=== PATIENT | male | born 1980 | race Caucasian/White ===

== ENCOUNTER 2020-03-27 10:44 | Emergency (ER) | payer OTHER, SELFPAY ==
[2020-03-27 10:53] VITALS: BP 130/70; PULSE 70; RESP 22; TEMP 36.6; O2SAT 99; BMI 86.3
--- NOTE | 2020-03-27 11:14 | ED.SOB ---
HPI - SOB/Dyspnea General Chief Complaint: Dyspnea <Mario Dorado NP - Last Filed: 03/27/20 16:19> Stated Complaint: hypertension <Mario Dorado NP - Last Filed: 03/27/20 16:19> Time Seen by Provider: 03/27/20 11:14 <Mario Dorado NP - Last Filed: 03/27/20 16:19> Source: patient <Mario Dorado NP - Last Filed: 03/27/20 16:19> Mode of arrival: ambulatory <Mario Dorado NP - Last Filed: 03/27/20 16:19> Limitations: no limitations <Mario Dorado NP - Last Filed: 03/27/20 16:19> History of Present Illness HPI Narrative: 39-year-old male with past medical history as noted below including history of pulmonary hypertension, asthma, obesity on 2 L oxygen at all times, chronic back pain who presents today with complaint of shortness of breath. States has had some shortness of breath unsure if it is related to his back or not he has history of chronic back pain and reports that sometimes this will cause him to have shortness of breath. Denies any recent cough congestion. No chest pain. No fever. <Mario Dorado NP - Last Filed: 03/27/20 16:19> MD elicited complaint: shortness of breath <Mario Dorado NP - Last Filed: 03/27/20 16:19> Related Data Home Medications: Previous Rx's Medication Instructions Recorded atorvastatin 40 mg PO DAILY #0 tab 03/27/20 lisinopril 20 mg PO DAILY #0 tab 03/27/20 metformin 1,000 mg PO DAILY #0 tab 03/27/20 omeprazole 40 mg PO DAILY #0 cap 03/27/20 verapamil 120 mg PO DAILY #0 tab 03/27/20 <PANKAJ Alan Last Filed: 03/27/20 16:19> Allergies/Adverse Reactions: Allergies Allergy/AdvReac Type Severity Reaction Status Date / Time No Known Allergies Allergy Verified 03/27/20 11:16 <PANKAJ Alan Last Filed: 03/27/20 16:19> Review of Systems Review of Systems: Constitutional: No Weight loss, No Fever, No Chills, No Night Sweats, No Fatigue, No Malaise ENT/Mouth: No Hearing loss, No Ear Pain, No Nasal Congestion, No Sinus Pain, No Hoarseness, No sore throat, No Rhinorrhea, No Swallowing Difficulty Eyes: No Eye Pain, No Swelling, No Redness, No Foreign Body, No Discharge, No Vision Changes Cardiovascular: No Chest Pain, No SOB, No Dyspnea on Exertion, No Orthopnea, No Edema, No Palpitations Respiratory: No Cough, No Sputum, No Wheezing, No Smoke Exposure, No Dyspnea Gastrointestinal: No Nausea, No Vomiting, No Diarrhea, No Constipation, No abdominal Pain, No Hematochezia, No Melena Genitourinary: no irregular bleeding, No Dysuria, No Urinary Frequency, No Hematuria, No Urinary Incontinence, No Urgency, No Flank Pain, No Urinary Flow Changes, No Hesitancy Musculoskeletal: No joint pain, No Myalgias, No Joint Swelling, + left side back pain Skin: No Skin Lesions, No rash Neuro: No Weakness, No Numbness, No Paresthesias, No Loss of Consciousness, No Dizziness, No Headache Psych: No Anxiety/Panic, No Depression, No SI/HI/AH/VH, No Social Issues, Heme/Lymph: No Bruising, No Bleeding,No Lymphadenopathy Endocrine: No Polyuria, No Polydipsia, No Temperature Intolerance <Mario Dorado NP - Last Filed: 03/27/20 16:19> Yes all other systems are reviewed and are negative <Mario Dorado NP - Last Filed: 03/27/20 16:19> PMFSH Past Medical History Attestation statement: The following information was validated with the patient. <Mario Dorado NP - Last Filed: 03/27/20 16:19> Medical History: Medical History (Updated 03/27/20 @ 16:01 by Mario Dorado NP) Asthma Chronic back pain Diabetes HTN (hypertension) Obesity Oxygen dependent Proteinuria Pulmonary hypertension Varicose veins of both lower extremities with pain <Mario Dorado NP - Last Filed: 03/27/20 16:19> Surgical History: Surgical History (Updated 03/27/20 @ 11:16 by Mario Dorado NP) H/O bariatric surgery History of abdominal surgery <Mario Dorado NP - Last Filed: 03/27/20 16:19> Social History Social History: Social History Alcohol intake: never Smoking Status: Never smoker Smoked in Last 30 Days: No Use of substances other than those prescribed or required for medical reasons: No Advance Directives: No Advance Directives Information Provided: No <Mario Dorado NP - Last Filed: 03/27/20 16:19> Physical Exam Vital Signs and I&O and Narrative: Vital Signs and I&O: Vital Signs Temp 98.1 F 03/27/20 15:34 Pulse 70 03/27/20 15:34 Resp 18 03/27/20 15:34 BP 108/67 03/27/20 15:34 Pulse Ox 98 03/27/20 15:34 Intake & Output 03/26/20 03/27/20 03/27/20 18:59 06:59 18:59 Weight 250 kg Body Mass Index 86.3 <Mario Dorado NP - Last Filed: 03/27/20 16:19> Vital Signs and I&O: Vital Signs Temp 98.1 F 03/27/20 15:34 Pulse 70 03/27/20 15:34 Resp 18 03/27/20 15:34 BP 108/67 03/27/20 15:34 Pulse Ox 98 03/27/20 15:34 Intake & Output 03/26/20 03/27/20 03/27/20 18:59 06:59 18:59 Weight 250 kg Body Mass Index 86.3 <Pratik Ferguson DO - Last Filed: 03/27/20 17:02> Const: General: cooperative and healthy appearing; No acute distress or intoxicated appearing <Mario Dorado NP - Last Filed: 03/27/20 16:19> Nutritional Appearance: average body habitus <Mario Dorado NP - Last Filed: 03/27/20 16:19> Orientation/consciousness: patient oriented x3 <Mario Dorado NP - Last Filed: 03/27/20 16:19> HENMT: Head: Yes normal to inspection <Mario Dorado NP - Last Filed: 03/27/20 16:19> Ears: hearing grossly normal bilaterally <Mario Dorado NP - Last Filed: 03/27/20 16:19> Eyes: General: appearance normal, both eyes and all related structures <Mario Dorado NP - Last Filed: 03/27/20 16:19> Visual Chisholm: normal visual chisholm by confrontation <[facility]strada - Last Filed: 03/27/20 16:19> Neck: Neck: Yes normal visual inspection, No positive Brudzinski's sign, No positive Kernig's sign and No tender <[facility] Estrada - Last Filed: 03/27/20 16:19> Thyroid: Thyroid normal <[facility] Estrada - Last Filed: 03/27/20 16:19> Chest: Chest palpation & inspection: normal inspection of the chest <[facility] Estrada - Last Filed: 03/27/20 16:19> Resp: Effort & Inspection: normal respiratory effort <[facility]strada - Last Filed: 03/27/20 16:19> Cardio: Jugular venous distension: no JVD <[facility]strada - Last Filed: 03/27/20 16:19> GI: Inspection: Yes normal to inspection <[facility]strada - Last Filed: 03/27/20 16:19> Percussion: Yes normal to percussion <[facility]strada - Last Filed: 03/27/20 16:19> Auscultation: normal bowel sounds <[facility]strada - Last Filed: 03/27/20 16:19> : General: Yes no CVA tenderness <[facility]strada - Last Filed: 03/27/20 16:19> Back/Spine/Pelvis: Back: no CVA tenderness <[facility] Estrada - Last Filed: 03/27/20 16:19> Skin: General skin exam: no rashes or lesions noted <[facility] Estrada - Last Filed: 03/27/20 16:19> Neuro: General: patient oriented x3 <[facility]strada - Last Filed: 03/27/20 16:19> Extrem: General: Yes normal to inspection <[facility] Estrada [employer] TECHNICIAN - Last Filed: 03/27/20 16:19> Course Course Hospital Course: reveals to me that he moved here from [facility] and has been trying to get into primary care doctor [facility] he has not been able to secure appointment. Requesting graduate assistant with this additionally he is O2 dependent and states he has a home unit however his portable supply is running low and requesting assistance with this as well. <Mario Dorado NP - Last Filed: 03/27/20 16:19> Reevaluation(s) Reevaluation #1: Labs overall stable. D-dimer negative. Chest x-ray negative. Troponin without delta. AP/ exam consistent musculoskeletal pain. Case discussed with case management- given that it is Saturday unable to make any refers to primary care doctor but will attempt to set him up tomorrow. In addition to this case was discussed with respiratory therapy- the therapist evaluated patient at bedside spoke to the in home sales representative from [facility] oxygen supplier their #[phone]. They are not on site to assist today however if he can contact them they can help the patient set that up from outpatient basis. He is requesting refill for his medication as he is in between doctor and no prescriber. He does use the [facility] and [facility] the nurse tried to call however unable to reach them. He does know his medications and refills were provided. <Mario Dorado NP - Last Filed: 03/27/20 16:19> Consultations Consultation #1: Case management; will assist tomorrow with primary care doctor <Mario Dorado NP - Last Filed: 03/27/20 16:19> Consultation #2: respiratory therapy; spoke to [facility] at [phone] - -- -- we can contact him tomorrow they will assist the patient's setting that up. He has home oxygen he just needs a supply the portable which he has short supply left. <Mario Dorado NP - Last Filed: 03/27/20 16:19> MDM - SOB/Dyspnea Differential Diagnosis Differential diagnosis: Likely acute exacerbation of chronic obstructive airways disease and pulmonary embolism; Unlikely congestive heart failure, pneumonia, pleural effusion, sleep apnea and anemia <PANKAJ Alan Last Filed: 03/27/20 16:19> Medical Records Attestation: I reviewed the patient's medical records. <Mario Dorado NP - Last Filed: 03/27/20 16:19> Lab Data Attestation: I reviewed the patient's lab results. <Mario Dorado NP - Last Filed: 03/27/20 16:19> Result diagrams: : 03/27/20 11:59 03/27/20 11:59 <Mario Dorado [employer] TECHNICIAN - Last Filed: 03/27/20 16:19> Labs: Lab Results 03/27/20 03/27/20 03/27/20 Range/Units 11:59 11:59 11:59 WBC 8.5 (4.8-10.8) X10*3/uL RBC 4.57 L (4.60-5.80) X10*6/uL Hgb 13.9 L (14.0-18.0) g/dl Hct 42.4 (42-52) % MCV 92.8 (80-98) fL MCH 30.4 (27.0-33.0) pg MCHC 32.8 (31.0-36.0) g/dl RDW 12.6 (11.0-16.0) % Plt Count 227 (160-400) X10*3/uL MPV 11.9 (9.4-12.4) fL Immature Gran % (Auto) 0.2 (0.0-0.4) % Neut % (Auto) 64.9 (45-73) % Lymph % (Auto) 22.9 (20-40) % [place] % (Auto) 8.8 (2-11) % Eos % (Auto) 2.5 (0-4) % Baso % (Auto) 0.7 (0-2) % Neut # (Auto) 5.5 (2.0-8.3) X10*3/uL Lymph # (Auto) 1.9 (1.2-4.9) X10*3/uL [place] # (Auto) 0.8 (0.1-1.2) X10*3/uL Eos # (Auto) 0.2 (0.0-0.4) X10*3/uL Baso # (Auto) 0.1 (0.0-0.2) X10*3/uL Abs Immat Gran (auto) 0.02 (0.00-0.03) X10*3/uL Absolute Nucleated RBC 0.000 (0.0-0.012) X10*3/uL Nucleated RBC % (auto) 0.0 (0.0-0.2) /100WBC D-Dimer NG/ML Sodium 142 (135-145) mmol/L Potassium 4.4 (3.3-5.1) mmol/l Chloride 104 (96-108) mmol/L Carbon Dioxide 31 H (22-29) mmol/L Anion Gap 11 L (12-20) BUN 13 (9-16) mg/dL Creatinine 0.99 (0.5-1.4) mg/dL Estim Creat Clear Calc 201.8 Estimated GFR > 60 Random Glucose 94 (60-115) mg/dL Calcium 9.2 (8.4-10.2) mg/dL Magnesium (1.6-2.6) mg/dL Troponin I High Sens 5.3 (<3.5-35.0) ng/L B-Natriuretic Peptide 20 (<100) pg/mL 03/27/20 03/27/20 03/27/20 Range/Units 11:59 11:59 14:09 WBC (4.8-10.8) X10*3/uL RBC (4.60-5.80) X10*6/uL Hgb (14.0-18.0) g/dl Hct (42-52) % MCV (80-98) fL MCH (27.0-33.0) pg MCHC (31.0-36.0) g/dl RDW (11.0-16.0) % Plt Count (160-400) X10*3/uL MPV (9.4-12.4) fL Immature Gran % (Auto) (0.0-0.4) % Neut % (Auto) (45-73) % Lymph % (Auto) (20-40) % [place] % (Auto) (2-11) % Eos % (Auto) (0-4) % Baso % (Auto) (0-2) % Neut # (Auto) (2.0-8.3) X10*3/uL Lymph # (Auto) (1.2-4.9) X10*3/uL [place] # (Auto) (0.1-1.2) X10*3/uL Eos # (Auto) (0.0-0.4) X10*3/uL Baso # (Auto) (0.0-0.2) X10*3/uL Abs Immat Gran (auto) (0.00-0.03) X10*3/uL Absolute Nucleated RBC (0.0-0.012) X10*3/uL Nucleated RBC % (auto) (0.0-0.2) /100WBC D-Dimer < 200 NG/ML Sodium (135-145) mmol/L Potassium (3.3-5.1) mmol/l Chloride (96-108) mmol/L Carbon Dioxide (22-29) mmol/L Anion Gap (12-20) BUN (9-16) mg/dL Creatinine (0.5-1.4) mg/dL Estim Creat Clear Calc Estimated GFR Random Glucose (60-115) mg/dL Calcium (8.4-10.2) mg/dL Magnesium 2.1 (1.6-2.6) mg/dL Troponin I High Sens 5.2 (<3.5-35.0) ng/L B-Natriuretic Peptide (<100) pg/mL <Mario Dorado NP - Last Filed: 03/27/20 16:19> Lab Results 03/27/20 03/27/20 03/27/20 Range/Units 11:59 11:59 11:59 WBC 8.5 (4.8-10.8) X10*3/uL RBC 4.57 L (4.60-5.80) X10*6/uL Hgb 13.9 L (14.0-18.0) g/dl Hct 42.4 (42-52) % MCV 92.8 (80-98) fL MCH 30.4 (27.0-33.0) pg MCHC 32.8 (31.0-36.0) g/dl RDW 12.6 (11.0-16.0) % Plt Count 227 (160-400) X10*3/uL MPV 11.9 (9.4-12.4) fL Immature Gran % (Auto) 0.2 (0.0-0.4) % Neut % (Auto) 64.9 (45-73) % Lymph % (Auto) 22.9 (20-40) % [place] % (Auto) 8.8 (2-11) % Eos % (Auto) 2.5 (0-4) % Baso % (Auto) 0.7 (0-2) % Neut # (Auto) 5.5 (2.0-8.3) X10*3/uL Lymph # (Auto) 1.9 (1.2-4.9) X10*3/uL [place] # (Auto) 0.8 (0.1-1.2) X10*3/uL Eos # (Auto) 0.2 (0.0-0.4) X10*3/uL Baso # (Auto) 0.1 (0.0-0.2) X10*3/uL Abs Immat Gran (auto) 0.02 (0.00-0.03) X10*3/uL Absolute Nucleated RBC 0.000 (0.0-0.012) X10*3/uL Nucleated RBC % (auto) 0.0 (0.0-0.2) /100WBC D-Dimer NG/ML Sodium 142 (135-145) mmol/L Potassium 4.4 (3.3-5.1) mmol/l Chloride 104 (96-108) mmol/L Carbon Dioxide 31 H (22-29) mmol/L Anion Gap 11 L (12-20) BUN 13 (9-16) mg/dL Creatinine 0.99 (0.5-1.4) mg/dL Estim Creat Clear Calc 201.8 Estimated GFR > 60 Random Glucose 94 (60-115) mg/dL Calcium 9.2 (8.4-10.2) mg/dL Magnesium (1.6-2.6) mg/dL Troponin I High Sens 5.3 (<3.5-35.0) ng/L B-Natriuretic Peptide 20 (<100) pg/mL 03/27/20 03/27/20 03/27/20 Range/Units 11:59 11:59 14:09 WBC (4.8-10.8) X10*3/uL RBC (4.60-5.80) X10*6/uL Hgb (14.0-18.0) g/dl Hct (42-52) % MCV (80-98) fL MCH (27.0-33.0) pg MCHC (31.0-36.0) g/dl RDW (11.0-16.0) % Plt Count (160-400) X10*3/uL MPV (9.4-12.4) fL Immature Gran % (Auto) (0.0-0.4) % Neut % (Auto) (45-73) % Lymph % (Auto) (20-40) % [place] % (Auto) (2-11) % Eos % (Auto) (0-4) % Baso % (Auto) (0-2) % Neut # (Auto) (2.0-8.3) X10*3/uL Lymph # (Auto) (1.2-4.9) X10*3/uL [place] # (Auto) (0.1-1.2) X10*3/uL Eos # (Auto) (0.0-0.4) X10*3/uL Baso # (Auto) (0.0-0.2) X10*3/uL Abs Immat Gran (auto) (0.00-0.03) X10*3/uL Absolute Nucleated RBC (0.0-0.012) X10*3/uL Nucleated RBC % (auto) (0.0-0.2) /100WBC D-Dimer < 200 NG/ML Sodium (135-145) mmol/L Potassium (3.3-5.1) mmol/l Chloride (96-108) mmol/L Carbon Dioxide (22-29) mmol/L Anion Gap (12-20) BUN (9-16) mg/dL Creatinine (0.5-1.4) mg/dL Estim Creat Clear Calc Estimated GFR Random Glucose (60-115) mg/dL Calcium (8.4-10.2) mg/dL Magnesium 2.1 (1.6-2.6) mg/dL Troponin I High Sens 5.2 (<3.5-35.0) ng/L B-Natriuretic Peptide (<100) pg/mL <Pratik Ferguson, DO - Last Filed: 03/27/20 17:02> Imaging Data Chest x-ray: Radiologist's impression: [address] [address] XRay Report Signed Patient: Gillian almeida#: [id number] : 1980Acct:[id number] Age/Sex: 39 / MADM Date: 03/27/20 Loc: HO.ED Attending Dr: Ordering Physician: Mario Dorado NP Date of Service: 03/27/20 Procedure(s): XR chest 1V Accession Number(s): [id number] cc: ~ EXAMINATION: XR CHEST CLINICAL INFORMATION: Shortness of breath COMPARISON: None TECHNIQUE: Frontal view of the chest was obtained. FINDINGS: No significant abnormality is noted involving the heart, lungs, mediastinum, bony thorax or soft tissues. IMPRESSION: Unremarkable examination. Dictated By:JUAN MARVIN MD Signed By:<Electronically signed by UJAN MARVIN MD in OV>03/27/20 1222 DD/ 1117 TD/TT: Parking Ramp Attendant: CONNOR <Mario Dorado NP - Last Filed: 03/27/20 16:19> ECG Data Interpretation: [place] [address] Electrocardiograph Report Draft Patient: Gillian almeida#: [id number] : 1980Acct:[id number] Age/Sex: 39 / MADM Date: 03/27/20 Loc: .ED Attending Dr: Ordering Physician: Mario Dorado NP Date of Service: 03/27/20 Procedure(s): ECG 12 lead EKG Accession Number(s): [id number] cc: ~ Test Reason : SOB Blood Pressure : / mmHG Vent. Rate : 065 BPM Atrial Rate : 065 BPM P-R Int : 238 ms QRS Dur : 100 ms QT Int : 428 ms P-R-T Axes : 025 052 012 degrees QTc Int : 445 ms Sinus rhythm with 1st degree A-V block Low voltage QRS Borderline ECG No previous ECGs available Referred By: Mario Dorado Electronically Signed By: Dictated By: Signed By: DD/ TD/TT: 03/27/20 1616Transcriptionist: <Mario Dorado NP - Last Filed: 03/27/20 16:19> Discharge Plan Discharge Clinical Impression: Pulmonary hypertension Asthma with exacerbation Qualifiers: Asthma severity: mild Asthma persistence: unspecified Qualified Code(s): J45.901 - Unspecified asthma with (acute) exacerbation <Mario Dorado NP - Last Filed: 03/27/20 16:19> Patient Disposition: Home, Self-Care <Mario Dorado NP - Last Filed: 03/27/20 16:19> Instructions: Asthma (ED), Dyspnea (ED) <Mario Dorado NP - Last Filed: 03/27/20 16:19> Additional Instructions: please take medication prescribed Our case management team will contact you tomorrow to assist with setting up primary care doctor In addition in home sales representative from [facility] will call you tomorrow to help you assist with home oxygen- their # [phone] <Mario Dorado NP - Last Filed: 03/27/20 16:19> Prescriptions: Continued atorvastatin 40 mg Tablet 40 mg PO DAILY Qty: 0 RF: 1 lisinopril 20 mg Tablet 20 mg PO DAILY Qty: 0 RF: 1 omeprazole 40 mg Capsule,Delayed Release(Dr/Ec) 40 mg PO DAILY Qty: 0 RF: 1 verapamil 120 mg Tablet 120 mg PO DAILY Qty: 0 RF: 1 metformin 1,000 mg Tablet 1,000 mg PO DAILY Qty: 0 RF: 1 <Mario Dorado NP - Last Filed: 03/27/20 16:19> Referrals: [facility] [place] [facility] [Provider Group] - 2 days <Mario Dorado NP - Last Filed: 03/27/20 16:19> Interventions: ED Discharge Assessment Last Done: 03/27/20 16:34 <Mario Dorado NP - Last Filed: 03/27/20 16:19> Discharge Date/Time: 03/27/20 16:56 <Mario Dorado NP - Last Filed: 03/27/20 16:19>
--- NOTE | 2020-03-27 11:17 | XR_ITS ---
EXAMINATION: XR CHEST CLINICAL INFORMATION: Shortness of breath COMPARISON: None TECHNIQUE: Frontal view of the chest was obtained. FINDINGS: No significant abnormality is noted involving the heart, lungs, mediastinum, bony thorax or soft tissues. IMPRESSION: Unremarkable examination.
--- NOTE | 2020-03-27 11:17 | ECG_ITS ---
Test Reason : SOB Blood Pressure : / mmHG Vent. Rate : 065 BPM Atrial Rate : 065 BPM P-R Int : 238 ms QRS Dur : 100 ms QT Int : 428 ms P-R-T Axes : 025 052 012 degrees QTc Int : 445 ms Sinus rhythm with 1st degree A-V block Low voltage QRS Borderline ECG No previous ECGs available Referred By: Mario Dorado Electronically Signed By:TUTU RICHTER
[2020-03-27 12:25] LABS: Basophils Absolute Auto 0.1 X10*3/uL (0.0-0.2); Basophils Percent Auto 0.7 % (0-2); Eosinophils Absolute Auto 0.2 X10*3/uL (0.0-0.4); Eosinophils Percent Auto 2.5 % (0-4); Hematocrit 42.4 % (42-52); Hemoglobin 13.9 g/dl (14.0-18.0); Imm Gran Abs Auto 0.02 X10*3/uL (0.00-0.03); Imm Gran Pct Auto 0.2 % (0.0-0.4); Lymphocytes Absolute Auto 1.9 X10*3/uL (1.2-4.9); Lymphocytes Percent Auto 22.9 % (20-40); MANUAL DIFF FLAG NO; Mean Corpuscular HGB Conc 32.8 g/dl (31.0-36.0); Mean Corpuscular Hemoglobin 30.4 pg (27.0-33.0); Mean Corpuscular Volume 92.8 fL (80-98); Mean Platelet Volume 11.9 fL (9.4-12.4); Monocytes Absolute Auto 0.8 X10*3/uL (0.1-1.2); Monocytes Percent Auto 8.8 % (2-11); Neutrophils Absolute Auto 5.5 X10*3/uL (2.0-8.3); Neutrophils Percent Auto 64.9 % (45-73); Platelet Count 227 X10*3/uL (160-400); Red Blood Count 4.57 X10*6/uL (4.60-5.80); Red Cell Distribution Width 12.6 % (11.0-16.0); White Blood Count 8.5 X10*3/uL (4.8-10.8)
[2020-03-27 12:44] LABS: D Dimer < 200 NG/ML
[2020-03-27 12:46] LABS: Anion Gap 11 (12-20); Blood Urea Nitrogen 13 mg/dL (9-16); Calcium 9.2 mg/dL (8.4-10.2); Carbon Dioxide 31 mmol/L (22-29); Chloride 104 mmol/L (96-108); Creatinine Clr Calc Pharmacy 201.8; Estimated Glomerular Filt Rate > 60; Glucose Random 94 mg/dL (60-115); Potassium 4.4 mmol/l (3.3-5.1); Sodium 142 mmol/L (135-145)
[2020-03-27 12:47] LABS: Magnesium 2.1 mg/dL (1.6-2.6)
[2020-03-27 12:51] LABS: B Type Natriuretic Peptide 20 pg/mL (<100); Troponin-I High Sensitivity 5.3 ng/L (<3.5-35.0)
--- NOTE | 2020-03-27 13:41 | MHC.CM.ED ---
pt has requested help in getting a pcp. a task has been made to the cm office to assist with this. pt also need help c portable o2 which is a respiratory ref - this was conveyed to e.d. provider and rx's which was also conveyed to provider. cm to cont. to follow.
--- NOTE | 2020-03-27 14:37 | MHC.CM.ED ---
per providers request i will notify cm tomorrow to [place] [facility] [place]'s portable o2 supplier to [facility] emergency department. pt's portable tank is essentially empty and his supplier is where he use to live - [place], [place]. evidently , respiratory saw patient today and this cannot be done today. email has been sent to cm covering e.d. tomorrow. cm to cont.. to follow.
[2020-03-27 14:40] LABS: Troponin-I High Sensitivity 5.2 ng/L (<3.5-35.0)
[2020-03-27 15:34] VITALS: BP 108/67; PULSE 70; RESP 18; TEMP 36.7; O2SAT 98
--- NOTE | 2020-03-28 15:06 | MHC.CM.ED ---
Patient was discharged from the ER yesterday, 03/27. Patient was living in [place]. Had a PCP and oxygen services there. Patient has since moved to [facility]. Has no PCP. No oxygen arranged in the are. Per resp therapy, services will not be able to be transferred without a local provider. No adidtional services can be provided at this time.
== END 2020-03-27 16:56 | disposition home or self-care (01) ==
PROVIDERS: Nurse Practitioner Primary Care; Emergency Provider Emergency Medicine
DX: I27.20 Pulmonary hypertension, unspecified (principal); J45.31 Mild persistent asthma with (acute) exacerbation; E11.9 Type 2 diabetes mellitus without complications; I10 Essential (primary) hypertension; Z99.81 Dependence on supplemental oxygen; Z79.84 Long term (current) use of oral hypoglycemic drugs; Z79.899 Other long term (current) drug therapy
CPT/HCPCS: 36415; 71045; 80048; 83735; 83880; 84484; 85025; 85379; 93005; 93010; 99284

== ENCOUNTER 2020-04-15 14:02 | Outpatient (REF) | payer OTHER, SELFPAY | END 2020-04-15 14:03 | disposition home or self-care (01) | LOC: HO.LAB 14:02 | PROVIDERS: Visit Provider Internal Medicine | DX: Z20.828 Contact with and (suspected) exposure to other viral communicable diseases (principal) | CPT/HCPCS: 87635 ==